=== PATIENT | female | born 1955 ===

== ENCOUNTER 2018-11-11 07:30 | Day surgery (SDC) | payer OTHER ==
[~2018-11-11 07:30] MED LIST: AMBIEN10 MG PO; CATAFLAM50 MG PO; CIPRO750 MG PO; CYMBALTA30 MG PO; Colace 100MG PO; GLUCOPHAGE XR500 MG PO; HYZAAR 100-121 UDTAB PO; NEURONTIN PO; NEUROTIN; PERCOCET 5/3251 TAB PO; SYNTHROID150 MCG PO; ZOCOR40 MG PO
== END 2018-11-11 12:22 | disposition home or self-care (01) ==
LOC: AMB-ENDOS 07:30
DX: D12.0 Benign neoplasm of cecum (principal); D12.3 Benign neoplasm of transverse colon

== ENCOUNTER 2021-01-17 07:25 | Day surgery (SDC) | payer OTHER | END 2021-01-17 12:45 | disposition home or self-care (01) | LOC: AMB-ENDOS 07:25 | PROVIDERS: ATTEND Surgery | DX: D12.2 Benign neoplasm of ascending colon (principal); K64.4 Residual hemorrhoidal skin tags; Z20.822 Contact with and (suspected) exposure to COVID-19 ==